=== PATIENT | male | born 1955 | race Caucasian/White ===

== ENCOUNTER 2018-06-19 13:08 | Emergency (ER) | payer SELFPAY ==
[~2018-06-19 13:08] MED LIST changes: -ATOR20TA65 PO; -CARV3.1255 PO; -CHOL10005 PO; -CLOP75TA43 PO; -GLY5 FT
[2018-06-19] MEDS ORDERED: ASPIRIN 81 MG CHEW PO ONE (13:15)
[2018-06-19] MEDS ORDERED: NITROGLYCERIN OINT 1 GM PKT TP ONE (13:30)
[2018-06-19] MEDS ORDERED: KETOROLAC 15 MG/ML VIAL IVP ONE (13:30)
--- NOTE | 2018-06-19 13:30 | EKG ---
FACILITY: [facility] PATIENT NAME: IRINEO GLOVER : [id number] MR: [id number] V: [id number] EXAM DATE: ORDERING PHYSICIAN: NEERAJ BONILLA TECHNOLOGIST: SONJA Test Reason : CHEST PAIN Blood Pressure : / mmHG Vent. Rate : 083 BPM Atrial Rate : 083 BPM P-R Int : 210 ms QRS Dur : 098 ms QT Int : 390 ms P-R-T Axes : 078 037 021 degrees QTc Int : 458 ms Sinus rhythm with 1st degree AV block Nonspecific ST-T findings III and AVF Confirmed by NAVEEN BELL ([id number]) on 06/19/2018 5:45:28 PM Referred By: IRENE Confirmed By:NAVEEN BELL
[2018-06-19 13:47] LABS: PLATELET COUNT, AUTOMATED 254 K/uL (150-450)
[2018-06-19 13:55] LABS: INR 0.98
[2018-06-19] MEDS ORDERED: ENOXAPARIN 100 MG/ML SYR SC SCH (14:05)
--- NOTE | 2018-06-19 14:08 | ER Report ---
History and Physical Time Seen By MD: 13:20 Hx. of Stated Complaint: c/o CP since Friday, progressively worsening, radiates to back, both shoulders, and into neck; no exacerbating or alleviating factors. HPI/ROS CHIEF COMPLAINT: Chest pain HISTORY OF PRESENT ILLNESS: Patient is a 63-year-old male with past medical hist ory for WA 2 coronary artery disease who presents to the emergency department with complaint of exertional chest pain since Friday. Patient states that he's been having exertional chest pain since Friday described as mild worsens with exertion and improves with rest. Described as pressure over the left side of the chest with some radiation to the left jaw. Patient states that last evening the pain was so severe he felt that he was "going to ". He did not call for an ambulance at that point. He states that he was able to go to sleep and get comfortable. He woke this morning feeling well but then when he began exerting himself throughout the day he noticed the same chest pain which apparently is his anginal equivalent. Treated for an WA at [facility] in 2017. He is only anticoagulated with aspirin, he also takes lisinopril and metoprolol. Patient denies any infectious type symptoms such as cough fever or chills. REVIEW OF SYSTEMS: Constitutional: No fever, no chills. Eyes: No discharge. ENT: No sore throat. Cardiovascular: Chest pain that is exertional, no palpitations Respiratory: Exertional dyspnea Gastrointestinal: No abdominal pain, no vomiting. Genitourinary: No hematuria. Musculoskeletal: No back pain. Skin: No rashes. Neurological: No headache. Allergies: Coded Allergies: No Known Drug Allergies (Verified , 06/19/18) Home Meds Reported Medications Cholecalciferol (Vitamin D3) (VITAMIN D3) 1,000 Unit Tablet, 1000 UNIT PO DAILY, TAB 06/19/18 Clopidogrel Bisulfate (PLAVIX) 75 Mg Tablet, 1 TAB PO QDAY, TAB 06/19/18 Atorvastatin Calcium (ATORVASTATIN CALCIUM) 20 Mg Tablet, 1 TAB PO QDAY, TAB 06/19/18 Carvedilol (COREG) 3.125 Mg Tablet, 3.125 MG PO BID, #10 TAB 06/19/18 Glyburide (GLYBURIDE) 5 Mg Tab, 5 MG FT DAILY, TAB 9/14/18 Citalopram Hydrobromide (CITALOPRAM HBR) 20 Mg Tablet, 20 MG PO QDAY, #5 TAB 03/08/17 Lisinopril (LISINOPRIL) 5 Mg Tablet, 5 MG PO QDAY, TAB 03/08/17 Aspirin (Aspirin) 81 Mg Tablet.dr, 81 MG PO DAILY, 0 Refills 07/21/12 Discontinued Reported Medications Metoprolol Succinate (METOPROLOL SUCCINATE) 50 Mg Tab.er.24h, 0.5 TAB PO QDAY, TAB 03/08/17 Metformin Hcl (METFORMIN HCL) 500 Mg Tablet, 2 TAB PO BID, TAB 03/08/17 Past Medical/Surgical History Has medical history for coronary artery disease, hypertension prior WA 2 last WA was in March 2017 and was treated at [facility]. Hx Smoking: No Hx Substance Use Disorder: No Hx Alcohol Use: Yes Constitutional Vital Sign - Last 24 Hours 06/19/18 06/19/18 06/19/18 06/19/18 13:08 13:12 13:13 13:13 Temp 98.2 Pulse ? 81 Resp 16 B/P (MAP) 163/87 (112) 163/87 Pulse Ox 99 O2 Delivery Room Air 06/19/18 06/19/18 06/19/18 06/19/18 13:18 13:23 13:28 13:33 Pulse 87 87 87 86 Resp 12 13 13 12 Pulse Ox 98 96 98 98 06/19/18 06/19/18 06/19/18 06/19/18 13:38 13:43 13:47 13:48 Pulse 89 89 88 Resp 15 10 13 B/P (MAP) 141/86 (104) Pulse Ox 95 97 95 06/19/18 06/19/18 06/19/18 06/19/18 13:53 14:00 14:08 14:13 Pulse 86 89 91 Resp 12 13 10 B/P (MAP) 99/73 (82) Pulse Ox 95 97 96 06/19/18 06/19/18 06/19/18 06/19/18 14:15 14:18 14:23 14:28 Pulse 89 88 89 Resp 15 9 13 B/P (MAP) 124/75 (91) Pulse Ox 97 95 92 06/19/18 06/19/18 06/19/18 06/19/18 14:30 14:33 14:38 14:43 Pulse 92 92 95 Resp 9 9 9 B/P (MAP) 104/64 Pulse Ox 92 94 94 Physical Exam General/Constitutional: Patient is awake, alert, nontoxic and in no acute respiratory distress. Head: Normocephalic and atraumatic. Eyes: Conjunctival clear, Pupils are equal and reactive to light. Extraocular muscles are intact and symmetrical. Sclera are clear and anicteric. Ears:External canals are clear. Tympanic membranes are clear with normal landmarks and light reflex. Nares: No rhinorrhea or bleeding. Turbinates are pink and moist. Oropharyngeal: Mucous membranes are moist. There is no pharyngeal erythema or exudate. There are no palatal petechiae. Uvula is midline and symmetrical. Neck: Supple, no adenopathy. Cardiovascular: Heart is regular rate and rhythm without audible murmurs, rubs or gallops. Pulmonary: Lungs are clear to auscultation bilaterally. There are no wheezes, rales, or rhonchi. Chest rise is symmetrical Abdomen: Soft, nontender, no guarding or peritoneal signs. Extremities: No gross deformities, No peripheral cyanosis. Able to move all 4 extremities. Neuro: Alert and oriented X3, and symmetrical. Patient has normal gait. Skin: No rashes, skin is warm dry and well perfused. Medical Decision Making Data Points Result Diagram: 06/19/18 1331 06/19/18 1331 Laboratory Hematology Test 06/19/18 13:31 Red Blood Count 4.36 M/uL (4.00-5.60) Mean Corpuscular Volume 87.5 fL (80.0-96.0) Mean Corpuscular Hemoglobin 30.0 pg (26.0-33.0) Mean Corpuscular Hemoglobin Concent 34.3 g/dL (32.0-36.0) Red Cell Distribution Width 14.4 % (11.5-14.5) Mean Platelet Volume 7.1 fL (7.2-11.1) Neutrophils (%) (Auto) 69.3 % (39.4-72.5) Lymphocytes (%) (Auto) 17.3 % (17.6-49.6) Monocytes (%) (Auto) 10.4 % (4.1-12.4) Eosinophils (%) (Auto) 2.5 % (0.4-6.7) Basophils (%) (Auto) 0.5 % (0.3-1.4) Nucleated RBC Relative Count (auto) 0.1 /100WBC Neutrophils # (Auto) 3.5 K/uL (2.0-7.4) Lymphocytes # (Auto) 0.9 K/uL (1.3-3.6) Monocytes # (Auto) 0.5 K/uL (0.3-1.0) Eosinophils # (Auto) 0.1 K/uL (0.0-0.5) Basophils # (Auto) 0.0 K/uL (0.0-0.1) Nucleated RBC Absolute Count (auto) 0.00 K/uL Prothrombin Time 13.0 seconds (12.0-14.4) Prothromb Time International Ratio 0.98 Activated Partial Thromboplast Time 28 seconds (23-35) Sodium Level 134 mmol/L (137-145) Potassium Level 3.9 mmol/L (3.5-5.0) Chloride Level 98 mmol/L (98-107) Carbon Dioxide Level 25 mmol/L (22-30) Blood Urea Nitrogen 13 mg/dl (9-21) Creatinine 1.10 mg/dl (0.66-1.25) Glomerular Filtration Rate Calc > 60.0 Random Glucose 243 mg/dl (75-110) Calcium Level 9.3 mg/dl (8.4-10.2) Total Bilirubin 1.3 mg/dl (0.2-1.3) Aspartate Amino Transf (AST/SGOT) 34 U/L (0-35) Alanine Aminotransferase (ALT/SGPT) 39 U/L (0-56) Alkaline Phosphatase 72 U/L (0-126) Troponin I 0.908 ng/ml B-Type Natriuretic Peptide 49 pg/ml (0-100) Total Protein 7.1 g/dl (6.3-8.2) Albumin 4.2 g/dl (3.5-5.0) Lipase 67 U/L (23-300) Helicobacter pylori IgG Antibody Negative (NEGATIVE) Chemistry Test 06/19/18 13:31 White Blood Count 5.0 k/uL (4.5-11.0) Red Blood Count 4.36 M/uL (4.00-5.60) Hemoglobin 13.1 g/dL (14.0-18.0) Hematocrit 38.1 % (42.0-52.0) Mean Corpuscular Volume 87.5 fL (80.0-96.0) Mean Corpuscular Hemoglobin 30.0 pg (26.0-33.0) Mean Corpuscular Hemoglobin Concent 34.3 g/dL (32.0-36.0) Red Cell Distribution Width 14.4 % (11.5-14.5) Platelet Count 254 K/uL (150-450) Mean Platelet Volume 7.1 fL (7.2-11.1) Neutrophils (%) (Auto) 69.3 % (39.4-72.5) Lymphocytes (%) (Auto) 17.3 % (17.6-49.6) Monocytes (%) (Auto) 10.4 % (4.1-12.4) Eosinophils (%) (Auto) 2.5 % (0.4-6.7) Basophils (%) (Auto) 0.5 % (0.3-1.4) Nucleated RBC Relative Count (auto) 0.1 /100WBC Neutrophils # (Auto) 3.5 K/uL (2.0-7.4) Lymphocytes # (Auto) 0.9 K/uL (1.3-3.6) Monocytes # (Auto) 0.5 K/uL (0.3-1.0) Eosinophils # (Auto) 0.1 K/uL (0.0-0.5) Basophils # (Auto) 0.0 K/uL (0.0-0.1) Nucleated RBC Absolute Count (auto) 0.00 K/uL Prothrombin Time 13.0 seconds (12.0-14.4) Prothromb Time International Ratio 0.98 Activated Partial Thromboplast Time 28 seconds (23-35) Glomerular Filtration Rate Calc > 60.0 Calcium Level 9.3 mg/dl (8.4-10.2) Total Bilirubin 1.3 mg/dl (0.2-1.3) Aspartate Amino Transf (AST/SGOT) 34 U/L (0-35) Alanine Aminotransferase (ALT/SGPT) 39 U/L (0-56) Alkaline Phosphatase 72 U/L (0-126) Troponin I 0.908 ng/ml B-Type Natriuretic Peptide 49 pg/ml (0-100) Total Protein 7.1 g/dl (6.3-8.2) Albumin 4.2 g/dl (3.5-5.0) Lipase 67 U/L (23-300) Helicobacter pylori IgG Antibody Negative (NEGATIVE) Coagulation Test 06/19/18 13:31 Prothrombin Time 13.0 seconds Prothromb Time International Ratio 0.98 Activated Partial Thromboplast Time 28 seconds EKG/Imaging EKG Interpretation EKG shows sinus rhythm with first-degree AV block with ventricular rate of [address]. [address] segment or T-wave abnormalities noted Monitor Interpretation: Normal Sinus Rhythm Imaging Chest x-ray interpreted by myself shows no acute cardiopulmonary abnormality. ED Course/Re-evaluation Clinical Indication for ER IV: IV Access ED Course 06/19/2018 1:42:14 pm patient with anginal equivalent type symptoms concerning for possible acute coronary syndrome versus WA. Plan will be to treat patient with aspirin and nitroglycerin. We will perform a cardiac workup. 06/19/2018 2:12:48 pm patient with a positive troponin at 0.9 with her upper limit for elevated troponin at 0.12. We will give 1 make per kilo of subcutaneous Lovenox. I am calling [facility] to discuss transfer of patient. Re-evaluation 06/19/2018 2:27:07 pm I spoke with both the manager of quality and the wharf operator at [facility]. They have agreed to accept the patient at this time. Diagnosis will be non-STEMI. They agree with our current management and treatment. Patient is hemodynamically stable and able to be transported by ground. Patient is currently pain-free. Initially I thought the patient told me that he did not receive any stenting with his last WA however upon requestioning the patient did receive a stent in 2017 in fact 2 stents to the same vessel. But he has had no cardiac bypass. Patient aware and agrees to transport to [facility]. Decision to Disposition Date: Jun 19, 2018 Decision to Disposition Time: 14:29 Depart Departure Latest Vital Signs Vital Signs Date Time Temp Pulse Resp B/P (MAP) Pulse Ox O2 Delivery O2 Flow Rate FiO2 06/19/18 14:43 95 9 94 06/19/18 14:30 104/64 06/19/18 13:13 98.2 Room Air Impression: Primary Impression: NSTEMI (non-ST elevated myocardial infarction) Condition: Improved Disposition: XFER TO ACUTE CARE HOSP[facility] (to [facility]) Referrals: GAVIN CHASE MD (PCP) NEERAJ BONILLA MD Jun 19, 2018 14:08
--- NOTE | 2018-06-19 14:17 | RADIOLOGY IMAGING REPORT ---
FACILITY: [facility] - [place], [place] PATIENT NAME: Sanjay Martin : 1955 MR: [id number] V: [id number] EXAM DATE: ORDERING PHYSICIAN: NEERAJ BONILLA TECHNOLOGIST: Location: [facility] [place] Patient: Sanjay Martin : 1955 Visit/Account:[id number] Date of Sevice: 06/19/2018 2 VIEWS CHEST INDICATION: Chest pain COMPARISON: 03/08/2017. FINDINGS: Cardiomediastinal silhouette and pulmonary vessels within normal limits. There is again mildly promin ent right pericardial fat pad which is unchanged. There is no focal infiltrate or lobar consolidation. There is no pneumothorax or pleural effusion. No nodule. Upper abdomen is unremarkable. No acute bony abnormality. IMPRESSION: 1. No acute cardiopulmonary process. Report Dictated By: Olivier Posada at 06/19/2018 2:12 PM Report E-Signed By: Olivier Posada at 06/19/2018 2:13 PM WSN:[id number]
[2018-06-19] MEDS ORDERED: CLOP75TA43 PO (14:24)
[2018-06-19] MEDS ORDERED: GLY5 FT (14:24)
[2018-06-19] MEDS ORDERED: CARV3.1255 PO (14:24)
[2018-06-19] MEDS ORDERED: ATOR20TA65 PO (14:24)
[2018-06-19] MEDS ORDERED: CHOL10005 PO (14:24)
[2018-06-19 14:30] VITALS: BP 104/64
== END 2018-06-19 15:08 | disposition short-term general hospital (02) ==
LOC: ER 13:19
DX: I21.4 Non-ST elevation (NSTEMI) myocardial infarction (principal); I44.0 Atrioventricular block, first degree
CPT/HCPCS: 71046; 83690; 83880; 84484; 85025; 85610; 85730; 86677; 93005; 96372; 96374; 99285; J1650; J1885; 82040; 82247; 82310; 82374; 82435; 82565; 82947; 84075; 84132; 84155; 84295; 84450; 84460; 84520

== ENCOUNTER → 2018-06-19 | Outpatient (CLI) | payer SELFPAY ==
[~2018-06-19] MED LIST: ANUS PR; ASPI-715 PO; ATOR20TA65 PO; CARV3.1255 PO; CHOL10005 PO; CITA-145 PO; CLOP75TA43 PO; ESC10 PO; GLY5 FT; LISI-346 PO; LISI5TAB25 PO; METF-450 PO; METO25TA93 PO; METO50TA19 PO; NEBI10TA4 PO; OXYC1CAP PO; ROS10 PO
== END ==
LOC: AMB 14:52
PROVIDERS: ATTEND Nurse Practitioner

== ENCOUNTER 2018-08-22 07:03 | Emergency (ER) | payer SELFPAY ==
[~2018-08-22 07:03] MED LIST changes: +ATOR20TA65 PO; +CARV3.1255 PO; +CHOL10005 PO; +CLOP75TA43 PO; +GLY5 PO
[2018-08-22 07:07] VITALS: BP 139/89
[2018-08-22] MEDS ORDERED: METF-452 PO (07:20)
[2018-08-22] MEDS ORDERED: PENI-24 PO (07:20)
[2018-08-22] MEDS ORDERED: PRAS10TA PO (07:20)
[2018-08-22] MEDS ORDERED: HYDR-653 PO (07:39)
--- NOTE | 2018-08-22 07:41 | ER Report ---
History and Physical Time Seen By MD: 07:25 Hx. of Stated Complaint: LEFT LOWER DENTAL PAIN STARTED FRIDAY, RX'D ANTIBIOTICS YESTERDAY FROM [facility], PT REPORTS SEVERE PAIN TODAY HPI/ROS CHIEF COMPLAINT: dental pain HISTORY OF PRESENT ILLNESS: Pt presents with dental pain left mandibular, states this has been ongoing for 6 d; he was started pcn yesterday; pain has worsened. He states that ibuprofen relieves pain but as soon as it wears off, pain quickly returns and is 10/10. He is reticent to take ibuprofen due to kidney and heart dysfunction. He believes he has lost a filling. Denies difficulty swallowing, fevers, chills, nausea, vomiting, facial swelling, or other symptoms. REVIEW OF SYSTEMS: Respiratory: No cough, no dyspnea. Cardiovascular: No chest pain, no palpitations. Gastrointestinal: No vomiting, no abdominal pain. Musculoskeletal: No back pain. Remainder of the 14 system rev: Yes Allergies: Coded Allergies: No Known Drug Allergies (Verified , 08/22/18) Home Meds Active Scripts Hydrocodone Bit/Acetaminophen (NORCO 5-325 TABLET) 1 Each Tablet, 1 EACH PO Q4- 6H for PAIN, #15 TAB Prov:NEERAJ KINGSLEY MD 08/22/18 Reported Medications Penicillin V Potassium 500 Mg Tab (PENICILLIN V POTASSIUM 500 MG TAB) 500 Mg Tab let, 1 TAB PO Q8H 08/22/18 Metformin Hcl (METFORMIN HCL) 1,000 Mg Tablet, 2 TAB PO BID, TAB 08/22/18 Prasugrel Hcl (EFFIENT) 10 Mg Tablet, 10 MG PO DAILY 08/22/18 Cholecalciferol (Vitamin D3) (VITAMIN D3) 1,000 Unit Tablet, 1000 UNIT PO DAILY, TAB 06/19/18 Atorvastatin Calcium (ATORVASTATIN CALCIUM) 20 Mg Tablet, 40 MG PO BID, TAB 06/19/18 Carvedilol (COREG) 3.125 Mg Tablet, 6.25 MG PO BID, #10 TAB 06/19/18 Glyburide (GLYBURIDE) 5 Mg Tab, 5 MG PO BID, TAB 06/19/18 Citalopram Hydrobromide (CITALOPRAM HBR) 20 Mg Tablet, 20 MG PO QDAY, #5 TAB 03/08/17 Lisinopril (LISINOPRIL) 5 Mg Tablet, 5 MG PO QDAY, TAB 03/08/17 Aspirin (Aspirin) 81 Mg Tablet., 81 MG PO DAILY, 0 Refills 07/21/12 Discontinued Reported Medications Clopidogrel Bisulfate (PLAVIX) 75 Mg Tablet, 1 TAB PO QDAY, TAB 06/19/18 Reviewed Nurses Notes: Yes Old Medical Records Reviewed: Yes Hx Smoking: No Hx Substance Use Disorder: No Hx Alcohol Use: Yes Constitutional Vital Sign - Last 24 Hours 08/22/18 07:07 Temp 97.6 Pulse 77 Resp 18 B/P (MAP) 139/89 Pulse Ox 97 O2 Delivery Room Air Physical Exam General Appearance: The patient is alert, has no immediate need for airway protection and no current signs of toxicity. OP - Tooth #18 dental patricia, tender to percussion, no surrounding fluctuance or sig erythema, no swelling. Eyes: Pupils equal and round no injection. Respiratory: LCTAB Cardiac: regular rate and rhythm Musculoskeletal: Neck: Neck is supple and non tender. No LAD Skin: No rashes or lesions. DIFFERENTIAL DIAGNOSIS: After history and physical exam differential diagnosis was considered for abscess, dental cavity, cellulitis, fb, or other com plication. Medical Decision Making ED Course/Re-evaluation ED Course Pt presents with pain c/w losing crown, exposed nerve root. On pcn, ibuprofen effective intermittently. We discussed r/b of mutliple approaches to pain control, all with some risk. Ultiamtely, as pt has f/u friday, it is reasonable to prescribe short course of norco for breakthrough pain. Pt is also using topical gel. D/c with SRp's for infection, worsening pain. Decision to Disposition Date: Aug 22, 2018 Decision to Disposition Time: 07:45 Depart Departure Latest Vital Signs Vital Signs Date Time Temp Pulse Resp B/P (MAP) Pulse Ox O2 Delivery O2 Flow Rate FiO2 08/22/18 07:07 97.6 77 18 139/89 97 Room Air Impression: Primary Impression: Pain, dental Condition: Improved Disposition: HOME OR SELF-CARE Referrals: GAVIN CHASE MD (PCP) New Scripts Hydrocodone Bit/Acetaminophen (NORCO 5-325 TABLET) 1 Each Tablet 1 EACH PO Q4-6H for PAIN, #15 TAB Prov: NEERAJ KINGSLEY MD 08/22/18 Patient Instructions: Dental Caries (DC) Additional Instructions: As we discussed, for a short time it may be reasonable to continue taking 400mg ibuprofen, but to minimize the risk, I recommend you take norco for breakthrough pain as needed. You have follow up Friday for definitive care. Please return immediately for fevers, swelling, or any concerns. NEERAJ KINGSLEY MD Aug 22, 2018 07:41
== END 2018-08-22 07:47 | disposition home or self-care (01) ==
LOC: ER 07:08
DX: K08.89 Other specified disorders of teeth and supporting structures (principal)
CPT/HCPCS: 99281

== ENCOUNTER → 2019-01-16 | Outpatient (REF) ==
[~2019-01-16] MED LIST changes: +HYDR-653 PO; +METF-452 PO; +PENI-24 PO; +PRAS10TA PO
== END ==
LOC: RESP 20:58 → EDSTATUS 21:00
PROVIDERS: ATTEND Family Medicine
DX: G47.33 Obstructive sleep apnea (adult) (pediatric) (principal); G47.37 Central sleep apnea in conditions classified elsewhere

== ENCOUNTER → 2019-01-25 | Outpatient (REF) ==
--- NOTE | 2019-01-25 16:34 | RADIOLOGY IMAGING REPORT ---
FACILITY: [facility] PATIENT NAME: Sanjay Martin : 1955 MR: [id number] V: [id number] EXAM DATE: ORDERING PHYSICIAN: TERELL CAMACHO TECHNOLOGIST: Location: [facility] [place] Patient: Sanjay Martin : 1955 Visit/Account:[id number] Date of Sevice: 01/25/2019 CAROTID HISTORY: Coronary artery disease, UT x3, trouble focusing COMPARISON: None. FINDINGS: Grayscale, duplex and color Doppler interrogation of the extracranial carotid and vertebral arteries was performed bilateral. On the right, peak systolic velocities within the common and internal carotid arteries are 104 and 11 4 cm/sec respectively. No significant plaque identified on the right. Antegrade flow within the com mon, internal and external carotid arteries as well as vertebral artery. ICA/CCA ratio 1.3. On the left, peak systolic velocities within the common and internal carotid arteries are 87 and 150 cm/sec respectively. There is a small to moderate amount of soft plaque at the left carotid bulb ext ending into the proximal left internal carotid artery. Antegrade flow within the common, internal an d external carotid arteries as well as vertebral artery. ICA/CCA ratio 1.9. IMPRESSION: There is a small to moderate amount of soft plaque at the left carotid bulb extending into the proxim al left internal carotid artery producing a peak systolic velocity in the left ICA of 150 cm/s. This corresponds to a 50-69% category stenosis Velocity criteria are extrapolated from diameter data as defined by the Society of Radiologists in [facility] Consensus Conference Radiology 2003; 229;340-346 Report Dictated By: Kaitlyn Waller MD at 01/25/2019 4:25 PM Report E-Signed By: Kaitlyn Waller MD at 01/25/2019 4:27 PM WSN:[id number]
== END ==
LOC: US 01:02
PROVIDERS: ATTEND Family Medicine
DX: I25.10 Atherosclerotic heart disease of native coronary artery without angina pectoris (principal); I25.2 Old myocardial infarction
CPT/HCPCS: 93880

== ENCOUNTER → 2019-02-25 | Outpatient (REF) | LOC: RESP 20:14 → EDSTATUS 21:00 | PROVIDERS: ATTEND Family Medicine | DX: G47.33 Obstructive sleep apnea (adult) (pediatric) (principal); G47.37 Central sleep apnea in conditions classified elsewhere; G47.61 Periodic limb movement disorder ==